=== PATIENT | female | born 1965 | race Caucasian/White ===

== ENCOUNTER → 2019-04-20 16:19 | Outpatient (CLI) | payer BC, SELFPAY ==
[2019-04-20 17:37] LABS: Amphetamine Urine VISTA NEGATIVE (<1000 ng/mL); Barbiturate Urine VISTA NEGATIVE (< 200 ng/mL); Benzodiazepine Urine VISTA POSITIVE (< 200 ng/mL); Cocaine Urine VISTA NEGATIVE (< 300 ng/mL); Ecstacy Urine VISTA NEGATIVE (< 500 ng/mL); Methadone Urine VISTA NEGATIVE (< 300 ng/mL); PCP Urine VISTA NEGATIVE (< 25 ng/mL); THC Urine VISTA NEGATIVE (< 50 ng/mL); Vista UDS pH Range 5
== END ==
PROVIDERS: Family Provider Family Medicine; PCP Family Medicine; Visit Provider Family Medicine
DX: Z51.81 Encounter for therapeutic drug level monitoring (principal); Z79.899 Other long term (current) drug therapy
CPT/HCPCS: 80307

== ENCOUNTER → 2019-04-30 16:00 | Outpatient (CLI) | payer BC, SELFPAY ==
--- NOTE | 2019-04-30 15:48 | MRI_ITS ---
STUDY: MRI LUMBAR SPINE WITHOUT CONTRAST REASON FOR EXAM: Female, 54 years old. Pain and weakness stenosis TECHNIQUE: Standardized fat and water weighted pulse sequences were obtained in the sagittal and axial planes. COMPARISON: None FINDINGS: Lumbar spine is intact and aligned with normal marrow, paraspinous soft tissues and SI joints. Conus medullaris terminates at T12 with normal cauda equina. Spinal canal is widely patent with a patulous thecal sac. There is mild left L3-L4, L4-L5 and moderate bilateral L5-S1 foraminal stenosis. Remainder of the levels have patent foramen. Lateral recesses are patent throughout. MRI/Spine Lumbar (Routine) IMPRESSION: 1. Widely patent canal. 2. Bilateral moderate L5-S1 foraminal stenosis. Electronically Signed: Osmin Castillo, at 16:49 EDT Tel , Service support ,
== END ==
PROVIDERS: Family Provider Family Medicine; PCP Family Medicine; Referring Provider Family Medicine; Visit Provider Family Medicine
DX: M48.061 Spinal stenosis, lumbar region without neurogenic claudication (principal); M51.36 Other intervertebral disc degeneration, lumbar region
CPT/HCPCS: 72148